=== PATIENT | male | born 1945 | race Caucasian/White ===

== ENCOUNTER 2021-05-13 17:31 | Inpatient (IN) ==
[2021-05-13 18:30] LABS: Hematocrit 38 % (42-52); Mean Corpuscular HGB Conc 34 g/dL (31-36); Mean Corpuscular Hemoglobin 30 pg (27-31); Mean Corpuscular Volume 89 fL (80-94); Mean Platelet Volume 8.3 fL (7.4-10.4); Platelet Count 135 10^3/uL (150-450); Red Blood Count 4.29 10^6 /uL (4.18-5.48); Red Cell Distribution Width 15 % (10-15); White Blood Count 11.7 10^3/uL (3.5-10.8)
[2021-05-13 18:50] LABS: Albumin 3.7 g/dL (3.2-5.2); Albumin/Globulin Ratio 1.3 (1-3); Calcium 9.5 mg/dL (8.6-10.3); Globulin 2.9 g/dL (2-4); Magnesium 1.9 mg/dL (1.9-2.7); Potassium 4.1 mmol/L (3.5-5.0); Total Bilirubin 0.6 mg/dL (0.2-1.0); Total Protein 6.6 g/dL (6.4-8.9); eGFR CKD-EPI 14.2 (>60)
[2021-05-13] MEDS ORDERED: NS 0.9% 1000 ml BAG 1,000 ML IV ONE (19:41)
[2021-05-13 20:40] LABS: ABS Eosinophils 0.3 10^3/ul (0-0.6); ABS Lymphocytes 0.9 10^3/ul (1.0-4.8); ABS Monocytes 0.9 10^3/ul (0-0.8); ABS Neutrophils 9.5 10^3/ul (1.5-7.7); Eosinophil % 2.9 %; Lymphocyte % 7.4 %
[2021-05-13] MEDS ORDERED: Magnesium Sulfate IV 1GM/100ML 1 GM/100 ML BAG IV ONE (21:51)
[2021-05-13] MEDS ORDERED: Enoxaparin 30 MG/0.3 ML SYR SUBCUT SCH (22:00)
[2021-05-14 00:55] LABS: Urine Appearance Clear; Urine Bilirubin Negative (Negative); Urine Blood 1+ (Negative); Urine Color Yellow; Urine Glucose 3+(>=500 mg/dL) (Negative); Urine Ketones Negative (Negative); Urine Nitrite Negative (Negative); Urine Protein 2+(100 mg/dL) (Negative); Urine Specific Gravity 1.009 (1.002-1.030); Urine Urobilinogen Negative (Negative)
[2021-05-14] MEDS ORDERED: Dextrose 50% Syringe 50 ml 25 GM/50 ML SYRINGE IV PUSH PRN (00:56)
[2021-05-14] MEDS ORDERED: Ondansetron 4 mg VIAL 2 MG/ML 2 ml VIAL IV ONE (02:00)
[2021-05-14 02:02] LABS: Urine White Blood Cell Trace(0-5/hpf) (Absent)
[2021-05-14 02:03] LABS: Urine Bacteria 1+ (Absent); Urine Red Blood Cell 3+(>10/hpf) (Absent)
[2021-05-14 02:04] LABS: Urine Squamous Epithelial Cell Present (Absent)
[2021-05-14] MEDS ORDERED: NS 0.9% 250 ml 250 ML IV ONE (08:21)
[2021-05-14 09:31] LABS: ABS Basophils 0.1 10^3/ul (0-0.2); ABS Eosinophils 0.1 10^3/ul (0-0.6); ABS Lymphocytes 0.5 10^3/ul (1.0-4.8); ABS Monocytes 0.8 10^3/ul (0-0.8); ABS Neutrophils 19.4 10^3/ul (1.5-7.7); Eosinophil % 0.6 %; Hematocrit 38 % (42-52); Hemoglobin 12.6 g/dL (14.0-18.0); Lymphocyte % 2.2 %; Mean Corpuscular HGB Conc 33 g/dL (31-36); Mean Corpuscular Hemoglobin 30 pg (27-31); Mean Corpuscular Volume 90 fL (80-94); Mean Platelet Volume 9.1 fL (7.4-10.4); Platelet Count 125 10^3/uL (150-450); Red Blood Count 4.26 10^6 /uL (4.18-5.48); Red Cell Distribution Width 15 % (10-15); White Blood Count 20.9 10^3/uL (3.5-10.8)
[2021-05-14] MEDS ORDERED: Vancomycin 1,500 MG in NS 0.9% 250 ml 250 ML IVPB ONE (09:35)
[2021-05-14] MEDS ORDERED: Piperacillin/Tazobac ADVAN 3.375 GM in NS 0.9% 100 ml BAG 100 ML IV ONE (09:35)
[2021-05-14 09:41] LABS: Calcium 8.9 mg/dL (8.6-10.3); Magnesium 1.8 mg/dL (1.9-2.7); Potassium 3.6 mmol/L (3.5-5.0); eGFR CKD-EPI 16.4 (>60)
[2021-05-14] MEDS ORDERED: Potassium Chlor 20 meq TAB.ER PO ONE (09:43)
[2021-05-14] MEDS ORDERED: Magnesium Sulfate IV 1GM/100ML 1 GM/100 ML BAG IV ONE (09:43)
[2021-05-14] MEDS: Cholecalciferol (VIT D3) 1,000 unit TAB PO SCH (12:41)
[2021-05-14] MEDS ORDERED: Vancomycin per Pharmacy 1 EA NOTE FOLLOW UP SCH (15:00)
[2021-05-14] MEDS ORDERED: Zosyn per Pharmacy NOTE FOLLOW UP SCH (15:00)
[2021-05-14] MEDS ORDERED: Perflutren Lipid Microsphere 3 ML VIAL ONE (16:01)
[2021-05-14] MEDS: ZOSYN 3.375 GM Q12H per EXTENDED INFUSION IV SCH (17:54)
[2021-05-15] MEDS: ZOSYN 3.375 GM Q12H per EXTENDED INFUSION IV SCH (03:12)
[2021-05-15 06:21] LABS: Hematocrit 37 % (42-52); Hemoglobin 12.3 g/dL (14.0-18.0); Mean Corpuscular HGB Conc 33 g/dL (31-36); Mean Corpuscular Hemoglobin 30 pg (27-31); Mean Corpuscular Volume 90 fL (80-94); Mean Platelet Volume 8.2 fL (7.4-10.4); Platelet Count 130 10^3/uL (150-450); Red Blood Count 4.11 10^6 /uL (4.18-5.48); Red Cell Distribution Width 15 % (10-15); White Blood Count 15.4 10^3/uL (3.5-10.8)
[2021-05-15 06:39] LABS: Magnesium 2.4 mg/dL (1.9-2.7); Potassium 4.3 mmol/L (3.5-5.0)
[2021-05-15] MEDS: Cholecalciferol (VIT D3) 1,000 unit TAB PO SCH (08:22)
[2021-05-15] MEDS ORDERED: Lactated Ringers 500 ml BAG 500 ML IV ONE (10:08)
[2021-05-15] MEDS ORDERED: Vancomycin Random Level NOTE FOLLOW UP ONE (14:00)
[2021-05-15] MEDS: Nystatin TOP POWDER 15 GM BTL TOPICAL SCH ×2 (15:44→20:12)
[2021-05-15] MEDS: Amoxicillin/Clavul 500/125 TAB (Augmentin 500 mg tab) PO SCH (20:05)
[2021-05-16 06:48] LABS: ABS Basophils 0.1 10^3/ul (0-0.2); ABS Eosinophils 0.5 10^3/ul (0-0.6); ABS Lymphocytes 1.6 10^3/ul (1.0-4.8); ABS Monocytes 0.8 10^3/ul (0-0.8); ABS Neutrophils 6.5 10^3/ul (1.5-7.7); Eosinophil % 4.9 %; Hematocrit 33 % (42-52); Lymphocyte % 16.6 %; Mean Corpuscular HGB Conc 33 g/dL (31-36); Mean Corpuscular Hemoglobin 30 pg (27-31); Mean Corpuscular Volume 89 fL (80-94); Mean Platelet Volume 7.9 fL (7.4-10.4); Platelet Count 118 10^3/uL (150-450); Red Cell Distribution Width 15 % (10-15); White Blood Count 9.4 10^3/uL (3.5-10.8)
[2021-05-16 07:10] LABS: Calcium 8.8 mg/dL (8.6-10.3); Magnesium 1.9 mg/dL (1.9-2.7); eGFR CKD-EPI 15.7 (>60)
[2021-05-16] MEDS ORDERED: Magnesium Sulfate IV 1GM/100ML 1 GM/100 ML BAG IV ONE (07:54)
[2021-05-16] MEDS: Amoxicillin/Clavul 500/125 TAB (Augmentin 500 mg tab) PO SCH (09:22)
[2021-05-16] MEDS: Cholecalciferol (VIT D3) 1,000 unit TAB PO SCH (09:22)
[2021-05-16] MEDS: Nystatin TOP POWDER 15 GM BTL TOPICAL SCH (09:26)
[2021-05-16 11:44] VITALS: BP 97/40
== END 2021-05-16 14:12 | disposition home or self-care (01) | DRG 868 ==
LOC: EDHOLD 17:31 → ED 17:31 → INTOOBSV 21:47 → OBSVTOIN 21:47 → SUATTDRO 21:47 → MEDTELE 05-14 14:31
PROVIDERS: ADMIT Student in an Organized Health Care Education/Training Program; ATTEND Internal Medicine